=== PATIENT | female | born 1945 | race Caucasian/White ===

== ENCOUNTER 2020-08-01 13:46 | Day surgery (SDC) | payer MEDICARE ==
[~2020-08-01] VITALS: Ht 165.1 cm; Wt 49.6 kg
[~2020-08-01 13:46] MED LIST: CALCIUM 600 +1 EA11 PO; CLONAZEPAM0.5 MG PO; ELIQUIS5 MG PO; EUTHYROX88 MCG PO; Inderal 20 mg T20 MG PO; RISP3 PO; [UNRECOGNIZED DRUG - OTHER]
--- NOTE | 2020-08-01 15:45 | NUR ---
08/01/20 1545 Jessica Mckeon CHANGED OUT SCOPES FROM PEDIATRIC TO ADULT AT 1522 IN ORDER TO BETTER VISUALIZE THE POLYP AT THE [facility]VE.
== END 2020-08-01 16:45 | disposition home or self-care (01) ==
LOC: ORSCSDS 13:46
PROVIDERS: Internal Medicine Gastroenterology
PROC: 0DBC8ZX Excision of Ileocecal Valve, Via Natural or Artificial Opening Endoscopic, Diagnostic (ICD-10-PCS; principal; 2020-08-01 15:00)
PROC: 3E0H8KZ Introduction of Other Diagnostic Substance into Lower GI, Via Natural or Artificial Opening Endoscopic (ICD-10-PCS; principal; 2020-08-01 15:00)
DX: Z12.11 Encounter for screening for malignant neoplasm of colon (principal); Z86.010 Personal history of colon polyps; D12.0 Benign neoplasm of cecum; K57.30 Diverticulosis of large intestine without perforation or abscess without bleeding; I10 Essential (primary) hypertension; Z79.01 Long term (current) use of anticoagulants; Z79.899 Other long term (current) drug therapy
CPT/HCPCS: 88305; J2704; J7120

== ENCOUNTER 2020-08-04 02:43 | Observation (INO) | payer MEDICARE ==
[~2020-08-04] VITALS: Ht 165.1 cm; Wt 49.4 kg
[2020-08-04 03:17] LABS: BASOPHILS ABSOLUTE AUTO 0.03 K/mm3 (0.00-0.23); BASOPHILS PERCENT AUTO 0 % (0-2); EOSINOPHILS ABSOLUTE AUTO 0.09 K/mm3 (0.00-0.68); EOSINOPHILS PERCENT AUTO 1 % (0-6); Hematocrit 32.8 % (33.0-51.0); Hemoglobin 11.6 g/dL (11.5-16.0); IMMATURE GRAN ABSOLUTE AUTO 0.01 K/mm3 (0.00-0.10); IMMATURE GRAN PERCENT AUTO 0 % (0-1); LYMPHOCYTES ABSOLUTE AUTO 1.55 K/mm3 (0.84-5.20); LYMPHOCYTES PERCENT AUTO 20 % (21-46); MONOCYTES ABSOLUTE AUTO 0.38 K/mm3 (0.16-1.47); MONOCYTES PERCENT AUTO 5 % (4-13); Mean Corpuscular HGB 31.3 pg (26.0-34.0); Mean Corpuscular HGB Conc 35.4 g/dL (31.5-36.5); Mean Corpuscular Volume 88 fL (80-100); Mean Platelet Volume 9.4 fL (9.1-12.4); NEUTROPHILS PERCENT AUTO 73 % (41-73); Platelet Count 153 K/mm3 (150-400); RDW Standard Deviation 38.5 fL (35.1-46.3); Red Blood Cell Count 3.71 M/mm3 (3.80-5.20); White Blood Cell Count 7.66 K/mm3 (4.00-11.30)
[2020-08-04 03:34] LABS: International Normalized Ratio 1.12; Prothrombin Time Results 11.9 Sec (9.7-11.5)
[2020-08-04 03:39] LABS: Alanine Aminotransfer (ALT/SGP 22 U/L (12-78); Albumin, Blood 3.6 g/dL (3.4-5.0); Albumin/Globulin Ratio 1.4 (0.8-1.8); Alk Phos 60 U/L (50-136); Anion Gap 7 mmol/L (6-16); Aspartate Aminotrans (AST/SGOT 16 U/L (12-37); Bilirubin, Total 1.2 mg/dL (0.1-1.0); Blood Urea Nitrogen 9 mg/dL (8-24); Bun/Creatinine Ratio 16.9 (12.0-20.0); CO2, Blood 24 mmol/L (21-32); Calcium, Blood 8.7 mg/dL (8.5-10.1); Chloride, Blood 100 mmol/L (98-108); Creatinine, Blood 0.53 mg/dL (0.40-1.00); Globulin, Blood 2.6 g/dL (2.2-4.0); Glomerular Filtration Rate >60 (60-); Glucose, Blood 117 mg/dL (70-99); Potassium, Blood 3.8 mmol/L (3.5-5.5); Sodium, Blood 131 mmol/L (136-145); Total Protein, Blood 6.2 g/dL (6.4-8.2)
[2020-08-04 07:08] LABS: Hematocrit 29.2 % (33.0-51.0); Hemoglobin 10.7 g/dL (11.5-16.0)
--- NOTE | 2020-08-04 07:56 | NUR ---
Assumed Care Report received from [facility]-RN. Patient arrived to unit via gurney, self transferred to bed. Able to follow instructions, A/Ox3. Report "lots of blood" with the last bm she had in ER. Denies shortness of breath. Settled to room, call light in reach, bed in lowest possible position. One bag of personal belongings with patient. WCTM.
[2020-08-04] MEDS ORDERED: PYRI100 PO (08:35)
[2020-08-04] MEDS ORDERED: ZINC PO (08:50)
[2020-08-04] MEDS ORDERED: ACET500 PO (08:50)
[2020-08-04] MEDS ORDERED: Selenomax200 MCG PO (08:51)
[2020-08-04] MEDS ORDERED: MANGANESE PO (08:52)
[2020-08-04] MEDS ORDERED: P5P PO (08:52)
[2020-08-04 12:34] LABS: Hematocrit 29.4 % (33.0-51.0); Hemoglobin 10.6 g/dL (11.5-16.0)
--- NOTE | 2020-08-04 12:37 | NUR ---
TACHYCARDIA RECEIVED CALL FROM Yowza RE HR 110-120'S. PATIENT SITTING AT EDGE OF BED HAVING LUNCH. AMBULATED TO BATHROOM AND NOW BACK IN BED. HR BACK DOWN TO 80'S.
--- NOTE | 2020-08-04 18:06 | NUR ---
CLONAZEPAM PATIENT REPORTS TAKING 0.5 MG CLONAZEPAM TID. DISCUSSED WITH Ajit BARTLETT. RECEIVED TO RESUME HOME MED DOSE AND FREQUENCY.
--- NOTE | 2020-08-04 18:27 | NUR ---
Shift Summary A/Ox3, flat affect. Pleasant/cooperative. Calls for needs appropriately. Patient started bowel prep this afternoon, tolerating this well. Denies nausea, vomiting, shortness of breath, dizziness. HR has been tachy when patient is up in room between 110-130's but returns back to 80's when back in bed. Tele: SR 70's. Stools remain red with micro clots. Patient on clear liquid diet. NS @ 75 continuous. SCD's on. Independent to bedside commode. Patient requesting clonazepam Q8H per home dose. EMAR updated to reflect this.
[2020-08-04 18:40] LABS: Hematocrit 26.2 % (33.0-51.0); Hemoglobin 9.2 g/dL (11.5-16.0)
[2020-08-05 00:26] LABS: Hematocrit 23.4 % (33.0-51.0); Hemoglobin 8.2 g/dL (11.5-16.0)
--- NOTE | 2020-08-05 05:47 | NUR ---
PT HAS FINISHED BOWEL PREP THIS SHIFT, BM CLEAR. NPO AT THIS TIME FOR EXPECTED COLONOSCOPY. STANDBY TO BSC, PT CALLS APPROPRIATELY. TELE IN SR THROUGHOUT SHIFT.
[2020-08-05 06:39] LABS: BASOPHILS ABSOLUTE AUTO 0.01 K/mm3 (0.00-0.23); BASOPHILS PERCENT AUTO 0 % (0-2); EOSINOPHILS ABSOLUTE AUTO 0.05 K/mm3 (0.00-0.68); EOSINOPHILS PERCENT AUTO 1 % (0-6); Hematocrit 23.9 % (33.0-51.0); Hemoglobin 8.4 g/dL (11.5-16.0); IMMATURE GRAN PERCENT AUTO 0 % (0-1); LYMPHOCYTES ABSOLUTE AUTO 1.14 K/mm3 (0.84-5.20); LYMPHOCYTES PERCENT AUTO 30 % (21-46); MONOCYTES ABSOLUTE AUTO 0.24 K/mm3 (0.16-1.47); MONOCYTES PERCENT AUTO 6 % (4-13); Mean Corpuscular HGB 31.5 pg (26.0-34.0); Mean Corpuscular HGB Conc 35.1 g/dL (31.5-36.5); Mean Corpuscular Volume 90 fL (80-100); Mean Platelet Volume 9.1 fL (9.1-12.4); NEUTROPHILS ABSOLUTE AUTO 2.31 K/mm3 (1.96-9.15); NEUTROPHILS PERCENT AUTO 62 % (41-73); Platelet Count 147 K/mm3 (150-400); RDW Coefficient Variation 12.7 % (11.7-14.2); RDW Standard Deviation 41.3 fL (35.1-46.3); Red Blood Cell Count 2.67 M/mm3 (3.80-5.20); White Blood Cell Count 3.75 K/mm3 (4.00-11.30)
[2020-08-05 08:02] LABS: Alanine Aminotransfer (ALT/SGP 19 U/L (12-78); Albumin, Blood 3.1 g/dL (3.4-5.0); Albumin/Globulin Ratio 1.4 (0.8-1.8); Alk Phos 48 U/L (50-136); Anion Gap 5 mmol/L (6-16); Aspartate Aminotrans (AST/SGOT 10 U/L (12-37); Bilirubin, Total 0.9 mg/dL (0.1-1.0); Blood Urea Nitrogen 4 mg/dL (8-24); Bun/Creatinine Ratio 7.5 (12.0-20.0); CO2, Blood 24 mmol/L (21-32); Calcium, Blood 8.1 mg/dL (8.5-10.1); Chloride, Blood 114 mmol/L (98-108); Creatinine, Blood 0.53 mg/dL (0.40-1.00); Globulin, Blood 2.2 g/dL (2.2-4.0); Glomerular Filtration Rate >60 (60-); Glucose, Blood 94 mg/dL (70-99); Potassium, Blood 3.5 mmol/L (3.5-5.5); Total Protein, Blood 5.3 g/dL (6.4-8.2)
[2020-08-05 08:03] LABS: Sodium, Blood 143 mmol/L (136-145)
[2020-08-05 08:54] LABS: Influenza A, PCR NEGATIVE (NEGATIVE); Influenza B, PCR NEGATIVE (NEGATIVE); Resp Syncytial Virus, PCR NEGATIVE (NEGATIVE); SARS-Cov-2 (COVID-19) PCR, MMC NEGATIVE (NEGATIVE)
--- NOTE | 2020-08-05 11:30 | NUR ---
LEFT ROOM FOR COLONOSCOPY PATIENT VOIDED, IV SALINE LOCKED, TELE REMOVED. PATIENT ESCORTED TO DAY SURGERY FOR SCOPE. L/M WITH KERA () REGARDING PROCEDURE ON TWO DIFFERENT PHONE NUMBERS.
--- NOTE | 2020-08-05 11:55 | NUR ---
08/05/20 1155 Glendy Quiros History, Chart, Medications and Allergies reviewed before start of procedure. Patient confirms NPO status and agrees with scheduled surgery. PATIENT DETERMINED TO BE ASA APPROPRIATE FOR PROPOFOL SEDATION PRIOR TO START OF PROCEDURE BY . 3-LEAD EKG REVIEWED WITH PHYSICIAN PRIOR TO START OF PROCEDURE. MONITOR INTACT WITH CONTINUOUS PULSE OXIMETRY AND INTERMITTENT BP. SUPPLEMENTAL O2 TO BE TITRATED THROUGHOUT PROCEDURE TO MAINTAIN O2 SATURATION ABOVE 90%.
--- NOTE | 2020-08-05 13:09 | NUR ---
RETURN FROM COLONOSCOPY RECEIVED REPORT FROM KAYY ACROS-OR-RN. PATIENT RETURNED BACK VIA [facility]. PATIENT REPORTS SLEEPINESS BUT NO DIZZINESS, NAUSEA, VOMITING. TELE PLACED BACK ON. DIET CHANGED TO REGULAR AND PATIENT TO RESUME ELIQUIS ON THURSDAY PER DR. REY. SETTLED TO ROOM, BED ALARM ON UNTIL SLEEPINESS SUBSIDES. DIEGO.
--- NOTE | 2020-08-05 14:30 | NUR ---
Discharge Summary A/Ox3, discharging to home. Reviewed discharge paperwork with patient, no questions at this time. Copy of d/c paperwork given. IV removed, WNL. Patient had late lunch tray, tolerated well. No new meds. Up in room and dressing self independently. to transport home via personal vehicle. Will be escorted by staff by w/c. No c/o pain. Personal belongings sent home. Patient had colonoscopy today with Dr. Contreras. No bowel movement since arrival back to unit from procedure.
--- NOTE | 2020-08-05 15:05 | NUR ---
Pt oswaldo leve today for home. Agnieszka is very hard of hearing and sitraught over not knowing what her care needs are. Review of her need and chart with pt and . Will follow up for advance directive.
== END 2020-08-05 14:55 | disposition home or self-care (01) ==
LOC: ER 02:43 → MEDS 06:19 → ER 07:30 → MEDS 07:42
PROVIDERS: Internal Medicine; Student in an Organized Health Care Education/Training Program; ADMIT Internal Medicine
PROC: 0DBK8ZX Excision of Ascending Colon, Via Natural or Artificial Opening Endoscopic, Diagnostic (ICD-10-PCS; principal; 2020-08-05 12:00)
DX: K91.840 Postprocedural hemorrhage of a digestive system organ or structure following a digestive system procedure (principal); Y83.8 Other surgical procedures as the cause of abnormal reaction of the patient, or of later complication, without mention of misadventure at the time of the procedure; D12.2 Benign neoplasm of ascending colon; K57.30 Diverticulosis of large intestine without perforation or abscess without bleeding; I48.20 Chronic atrial fibrillation, unspecified; F41.9 Anxiety disorder, unspecified; E03.9 Hypothyroidism, unspecified; I10 Essential (primary) hypertension; Z91.048 Other nonmedicinal substance allergy status; Z79.01 Long term (current) use of anticoagulants; Z91.013 Allergy to seafood; Z20.822 Contact with and (suspected) exposure to COVID-19
CPT/HCPCS: 0241U; 36415; 36416; 80053; 85014; 85018; 85025; 85610; 85730; 86850; 86900; 86901; 88305; 93005; 93010; 99285-25; A9270; G0378; J2704; J7030; J7120

== ENCOUNTER 2021-03-08 07:41 | Day surgery (SDC) | payer MEDICARE ==
[~2021-03-08] VITALS: Ht 165.1 cm; Wt 51.4 kg
[~2021-03-08 07:41] MED LIST changes: +ACET500 PO; +MANGANESE PO; +P5P PO; +PYRI100 PO; +Selenomax200 MCG PO; +ZINC PO
[2021-03-08] MEDS ORDERED: ELIQUIS2.5 MG (07:55)
== END 2021-03-08 10:10 | disposition home or self-care (01) ==
LOC: ORSCSDS 07:41
PROVIDERS: Internal Medicine Gastroenterology
PROC: 0DBH8ZX Excision of Cecum, Via Natural or Artificial Opening Endoscopic, Diagnostic (ICD-10-PCS; principal; 2021-03-08 09:00)
DX: Z12.11 Encounter for screening for malignant neoplasm of colon (principal); Z86.010 Personal history of colon polyps; K57.30 Diverticulosis of large intestine without perforation or abscess without bleeding; D12.0 Benign neoplasm of cecum; Z87.891 Personal history of nicotine dependence; Z79.899 Other long term (current) drug therapy
CPT/HCPCS: 88305; J2704; J7120